=== PATIENT | male | born 1955 | race Caucasian/White ===

== ENCOUNTER → 2022-03-31 | Outpatient (CLI) | payer BC ==
[2022-03-31 15:35] LABS: BASOPHILS % (AUTO) 0 % (0-10); EOSINOPHILS # (AUTO) 0.1 10^3/uL (0.0-0.3); EOSINOPHILS % (AUTO) 1 % (0-10); HEMATOCRIT 34 % (40-54); HEMOGLOBIN 11.7 g/dL (13.3-17.7); LYMPHOCYTES # (AUTO) 0.7 X 10^3 (1.0-4.0); LYMPHOCYTES % (AUTO) 6 % (12-44); MEAN CORPUSCULAR HEMOGLOBIN 31 pg (25-34); MEAN CORPUSCULAR HGB CONC 35 g/dL (32-36); MEAN CORPUSCULAR VOLUME 89 fL (80-99); MEAN PLATELET VOLUME 9.9 fL (9.0-12.2); MONOCYTES # (AUTO) 0.9 X 10^3 (0.0-1.0); MONOCYTES % (AUTO) 8 % (0-12); NEUTROPHILS # (AUTO) 9.6 X 10^3 (1.8-7.8); NEUTROPHILS % (AUTO) 85 % (42-75); PLATELET COUNT 255 10^3/uL (130-400); WHITE BLOOD COUNT 11.3 10^3/uL (4.3-11.0)
[2022-03-31 15:40] LABS: ALBUMIN 3.6 GM/DL (3.2-4.5)
[2022-03-31 15:42] LABS: CALCIUM 9.1 MG/DL (8.5-10.1)
[2022-03-31 15:43] LABS: TOTAL PROTEIN 6.9 GM/DL (6.4-8.2)
--- NOTE | 2022-03-31 15:43 | Diagnostic Imaging Report ---
Indication: Shortness of breath and fever. Time of Exam: 3:29 PM Correlation is made with prior chest 07/18/2013. Heart size normal. There is an infiltrate that has developed in the right upper lobe consistent with pneumonia. There are significant emphysematous changes in both lungs. No effusion or pneumothorax is seen. Impression: Right upper lobe pneumonia. Dictated by: Dictated on workstation # [id number]
[2022-03-31 15:45] LABS: BILIRUBIN,TOTAL 0.8 MG/DL (0.1-1.0)
[2022-03-31 15:46] LABS: CREATININE SERUM 0.93 MG/DL (0.60-1.30)
[2022-03-31 16:21] LABS: LYMPHOCYTES % (MANUAL) 8 %; MICROCYTOSIS SLIGHT; MONOCYTES % (MANUAL) 5 %; NEUTROPHILS % (MANUAL) 86 %
== END ==
LOC: RAD 14:54
PROVIDERS: ATTEND Nurse Practitioner Family
DX: J18.9 Pneumonia, unspecified organism (principal); Z20.822 Contact with and (suspected) exposure to COVID-19
CPT/HCPCS: 36415; 71046; 80053; 85007; 85027

== ENCOUNTER → 2022-09-28 | Outpatient (CLI) | payer BC ==
--- NOTE | 2022-09-28 18:02 | Diagnostic Imaging Report ---
INDICATION: Foreign body COMPARISON: None available TECHNIQUE: Four radiographs of the left hand are obtained dated 09/28/2022. FINDINGS: A BB marker is placed on the skin surface to correspond to the region of clinical concern. No acute fracture or dislocation. Scattered osseous degenerative changes are identified with prominent osteophyte formation. This is greatest involving the 1st CMC joint where degenerative changes are severe in nature. Additional significant degenerative changes are noted involving scattered interphalangeal joints, particularly distal interphalangeal joints. Scapholunate interval is within normal limits. No suspicious radiopaque foreign body. Mild soft tissue swelling is noted involving the dorsum of the hand. 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 Soft tissue swelling involving the dorsum of the hand without suspicious radiopaque foreign body. Dictated by: Dictated on workstation # [id number]
== END ==
LOC: RAD 12:20
PROVIDERS: ATTEND Surgery
DX: M18.9 Osteoarthritis of first carpometacarpal joint, unspecified (principal); M79.5 Residual foreign body in soft tissue
CPT/HCPCS: 73130

== ENCOUNTER 2022-10-18 11:01 | Outpatient (CLI) | payer BC ==
[~2022-10-18] VITALS: Ht 182.9 cm; Wt 80.3 kg
[2022-10-18] MEDS ORDERED: APRE30TA2 PO (11:38)
[2022-10-18] MEDS ORDERED: ROSU20TA32 PO (11:38)
[2022-10-18] MEDS ORDERED: ALLO100T PO (11:38)
[2022-10-18] MEDS ORDERED: CHOL400T PO (11:38)
[2022-10-18] MEDS ORDERED: MULT-974 PO (11:38)
[2022-10-18] MEDS ORDERED: LEVO100C4 PO (11:38)
[2022-10-19] MEDS ORDERED: CEPH500T PO (16:00)
[2022-10-19] MEDS ORDERED: ACHD5005 PO (16:00)
== END 2022-10-18 13:02 | disposition home or self-care (01) ==
LOC: PREOP 11:01
PROVIDERS: ATTEND Surgery
DX: Z01.818 Encounter for other preprocedural examination (principal)

== ENCOUNTER 2022-10-19 13:25 | Day surgery (SDC) | payer BC ==
[2022-10-19] VITALS (8 sets, daily range): BP systolic 147–164; BP diastolic 83–92
[~2022-10-19] VITALS: Ht 182.9 cm; Wt 80.3 kg
[~2022-10-19 13:25] MED LIST: ALLO100T PO; APRE30TA5 PO; CHOL400T PO; LEVO100C4 PO; MULT-974 PO; ROSU20TA32 PO
[2022-10-19] MEDS ORDERED: BUP/EPI 0.5% 1:200,000 (SENSORCAINE) 30 ML VIAL ONE (13:47)
[2022-10-19] MEDS: LACTATED RINGERS 1,000 ML IV PRN ×2 (14:24→16:06)
[2022-10-19] MEDS ORDERED: ceFAZolin INJECTION 2,000 MG in NS (IVPB) 50 ML IV ONE (14:30)
[2022-10-19] MEDS ORDERED: proPOfol 200 MG/20 ML (DIPRIVAN) VIAL IV ONE (14:43)
[2022-10-19] MEDS ORDERED: fentaNYL INJ 100 MCG/2 ML AMP ONE (14:43)
[2022-10-19] MEDS ORDERED: ONDANSETRON 4 MG/2 ML (SDV) Z0FRAN ONE (14:43)
[2022-10-19] MEDS ORDERED: LIDOCAINE PF 2% 5 ML (XYLOCAINE) VIAL ONE (14:43)
--- NOTE | 2022-10-19 14:45 | Progress Note-Pre Operative ---
Pre-Operative Progress Note Date of Available H&P: Oct 01, 2022 Date H&P Reviewed: Oct 19, 2022 Time H&P Reviewed: 14:45 History & Physical: H&P Reviewed, Patient Examed, No changes noted Pre-Operative Diagnosis: L. Retained Foreign Body SEAN ARCE DO Oct 19, 2022 14:45
[2022-10-19] MEDS ORDERED: SEVOFLURANE (ULTANE) 15 ML INHAL SOLN ONE (15:43)
--- NOTE | 2022-10-19 15:58 | Anesthesia-General Post-Op ---
General Patient Condition Mental Status/LOC: Same as Preop Cardiovascular: Satisfactory Nausea/Vomiting: Absent Respiratory: Satisfactory Pain: Controlled Complications: Absent Post Op Complications Complications None Follow Up Care/Instructions Patient Instructions None needed. Anesthesia/Patient Condition Patient Condition Patient is doing well, no complaints, stable vital signs, no apparent adverse anesthesia problems. No complications reported per nursing. JESSICA VEGA CRNA Oct 19, 2022 15:58
[2022-10-19] MEDS ORDERED: ACHD5005 PO (16:00)
[2022-10-19] MEDS ORDERED: morphine INJ 10 MG/ML 1ML (SYR OR VIAL) IVP ONE (16:00)
[2022-10-19] MEDS ORDERED: CEPH500T PO (16:00)
[2022-10-19] MEDS ORDERED: ONDANSETRON 4 MG/2 ML (SDV) Z0FRAN IVP PRN (16:00)
[2022-10-19] MEDS ORDERED: MEPERIDINE (DEMEROL) INJ 50 MG/ML IVP ONE (16:00)
--- NOTE | 2022-10-19 16:02 | Discharge Inst-Simple/Standard ---
Discharge Inst-Standard Discharge Medications New, Converted or Re-Newed RX: Transmitted to Pharmacy Patient Instructions/Follow Up Plan of Care/Instructions/FU: Tomorrow afternoon with Dr. Pace Activity as Tolerated: No Discharge Diet: Regular Diet Other Inst to Patient Follow up Appt: Make appointment for tomorrow afternoon with Dr. Pace Instructions: No strenuous activity. May shower in 24 hours, no tub bath or soaking. Use incentive spirometer at home as directed. No Smoking Skin/Wound Care: You have an open packed wound. This will need change daily. It will be changed tomorrow for you. Symptoms to Report: Appetite Changes, Extremity Discoloration, Numbness/Tingling, Swelling Increased, Bleeding Excessive, Eyesight Changes, Pain Increased, Urine Color Change, Constipation(Persistent), Fever over 101 degree F, Pain/Pressure in chest, Urinating Difficulty, Cough Up/Vomit Blood, Heart Beat Irreg/Pounding, Pain/Pressure in jaw, Vaginal Bleeding Increase, Cramps in feet or legs, Lightheadedness, Pain/Pressure in shoulder, Diarrhea(Persistent), Memory Changes Suddenly, Questions/Concerns, Weight gain consecutive days, Dizziness/Fainting, Nausea/Vomiting, Shortness of Breath, Weight gain over 2 pounds If questions or concerns contact your physician Or seek help at emergency department. SEAN PACE DO Oct 19, 2022 16:02
--- NOTE | 2022-10-19 23:33 | OPERATIVE REPORT ---
DATE OF SERVICE: 10/19/2022 PREOPERATIVE DIAGNOSIS: Foreign body, left hand. POSTOPERATIVE DIAGNOSES: Left hand abscess and foreign body. PROCEDURE: Incision and drainage of left hand abscess with removal of foreign body, left hand. SURGEON: Sean Pace DO ANESTHESIA: General. ESTIMATED BLOOD LOSS: Minimal. COMPLICATIONS: None. INDICATIONS: The patient is a 67-year-old male, who previously had a foreign body to his left hand greater than a year ago. The patient then developing recent inflammation and swelling to the left dorsal side of the hand. He had an MRI, which demonstrated this to be more consistent with a fluid collection with foreign body. He was discussed risks and benefits of procedure and wished to proceed. Consent was signed and in chart. DESCRIPTION OF PROCEDURE: The patient was taken to the operating suite where he was prepped and draped in sterile fashion. Timeout was performed. Local anesthetic was infiltrated over the area of fluctuance. A 15 blade scalpel was used to make an approximately 2 cm incision. Purulent material erupted mixed with serous appearing fluid. Culture was obtained. Began to explore the cavity. A lot of fibrotic tissue present. Unable to visualize any type of foreign body. Used the mini C-arm to try to visualize any foreign body, which using two views. This was not able to be visualized. With probing, found a chronic tract, which then I opened and then felt something more proximal, so open that tract up further and was able to then remove the foreign body, which was in this location. The wound was then irrigated with copious amounts of irrigation. The wound was then packed. The area was washed and dried and sterile bandages were applied. The patient tolerated the procedure well without complication and taken to recovery room in stable condition. RECOMMENDATIONS: The patient will follow up in the office tomorrow for repacking and for education and proceed with further wound care. The patient also placed on Keflex. Job ID: [id number] DocumentID: [id number] Dictated Date: 10/19/2022 16:18:39 Cost Control Specialist Date: 10/19/2022 23:32:00 Dictated By: SEAN PACE DO
== END 2022-10-19 17:30 | disposition home or self-care (01) ==
LOC: SDC 13:25
PROVIDERS: ATTEND Surgery
DX: M79.5 Residual foreign body in soft tissue (principal); L02.512 Cutaneous abscess of left hand
CPT/HCPCS: 87070; 87075; 87077; 87081; 87101; 87186; 87205

== ENCOUNTER → 2023-07-13 | Outpatient (CLI) | payer MEDICARE, OTHER ==
[~2023-07-13] MED LIST changes: +ACHD5005 PO; +CEPH500T PO; -ROSU20TA32 PO; +ROSU20TA73 PO
--- NOTE | 2023-07-13 14:52 | Diagnostic Imaging Report ---
INDICATION: Cough. Shortness of air. COMPARISON: 07/18/2013 and 07/19/2022. FINDINGS: Frontal and lateral radiographic views of the chest were obtained. There has been significant interval improved aeration of the right upper lung when compared to 03/31/2022. Spiculated nodular opacities persist in the right upper lung. A reference opacity measures 1.6 cm. No large effusion or pneumothorax is seen. The lungs show background hyperinflation. The cardiac silhouette and pulmonary vasculature are within normal limits. IMPRESSION: Significant interval improved aeration of the right upper lung. A spiculated nodular opacity persists and may be on the basis of scarring and/or atelectasis but further characterization with a CT chest is advised. Dictated by: Dictated on workstation # [id number]
== END ==
LOC: RAD 13:24
PROVIDERS: ATTEND Internal Medicine
DX: R05.9 Cough, unspecified (principal); R06.02 Shortness of breath
CPT/HCPCS: 71046